=== PATIENT | male | born 1970 | race Caucasian/White ===

== ENCOUNTER → 2017-03-15 | Outpatient (CLI) | payer OTHER ==
[~2017-03-15] MED LIST: ADVAIR 250/501 EA INH; ALBUTEROL0.09 MG/A2 IH; CATAFLAM50 MG PO; DOXYCYCLINE100 M3 PO; FLEXERIL5 MG PO; LEVOTHYROXINE; LOVASTATIN40 MG PO; PREDNICOT20 MG PO; VICODIN 5/500 505 MG PO
== END | disposition home or self-care (01) ==
LOC: RAD 07:52
DX: J44.9 Chronic obstructive pulmonary disease, unspecified (principal); J45.909 Unspecified asthma, uncomplicated; Z87.891 Personal history of nicotine dependence

== ENCOUNTER 2017-07-24 12:02 | Inpatient (IN) | payer OTHER ==
[2017-07-24] VITALS (9 sets, daily range): BP systolic 82–109; BP diastolic 50–67
[~2017-07-24] VITALS: Ht 154.9 cm; Wt 55.3 kg
--- NOTE | ~2017-07-24 | PR ---
[place], [place] PROGRESS NOTE NAME: BONG GRAHAM UNIT #: [id number] ROOM: 505 DOCTOR: ANTHONY ALFONSO,TITUS Laboy BIRTHDATE: [birth year] DOS: 07/28/2017 ADDENDUM After reviewing the labs and chart, I agree with the above plans as described. We will follow patient clinically and adjust accordingly. TITUS CRUZ MD CM:PNTRANS 1904 02 TITUS CRUZ MD 07/28/17 2004 interface
--- NOTE | ~2017-07-24 | CON ---
[place], [place] REPORT OF CONSULTATION [id number] UNIT #: [id number] ROOM: [facility] DOCTOR: XIMENA LOUISE MD BIRTHDATE: [birth year] DOS: 07/24/2017 HISTORY OF PRESENT ILLNESS: A 46-year-old Euro-[place] gentleman who was seen by his PCP, was noted to have hypertensive while he was in the office. Subsequently, he came to the Emergency Room where he was found to be hypertensive, tachycardic ____ the patient and his was in [place]. She said there was a sick people in the plane. Subsequently, he started having fever, chills, productive cough of yellowish green sputum and not able to eat anything and some diarrhea. He took ibuprofen without much improvement. Subsequently, came to the Emergency Room. He was noted to have thrombocytopenia and leukocytosis and consulted for further evaluation and management. PAST MEDICAL HISTORY: Significant for asthma, COPD, hypothyroidism, Sjogren syndrome. SURGICAL HISTORY: No previous surgical history. SOCIAL HISTORY: Drinks 4 drinks per day. Denies any drug abuse. FAMILY HISTORY: Unknown. ALLERGIES: No known allergies. MEDICATIONS: Albuterol, Advair, levothyroxine, lovastatin, meloxicam. REVIEW OF SYSTEMS CONSTITUTIONAL: Has been having fever, chills, diarrhea. HEENT: No trouble swallowing. No loss of smell. No loss of hearing. No double vision. No pain. No discharge. ENT AND RESPIRATORY: No wheeze. No sore throat. No change in voice. No hearing loss. No nose bleed. No cough. No trouble breathing through nose. No shortness of breath. No coughing up blood. No epistaxis. CARDIOVASCULAR: No chest pain. No dizziness. No irregular heartbeat. No leg edema. No pain in legs while walking. No palpitations. No shortness of breath. DERMATOLOGIC: No acne. No hives. No laceration. No mole. No rash. ENDOCRINE: No cold intolerance. No diabetes. No fatigue. No hot flashes. No polydipsia. No polyuria. No urinating frequently. No weight loss. HEMATOLOGIC AND LYMPH: No fatigue. No easy bruising. GASTROENTEROLOGIC: No change in bowel habits. No indigestion. No frequent bloating. No vomiting blood. No abdominal cramping. No nausea. No heartburn. No vomiting. No abdominal pain. No dysphagia. No diarrhea. No constipation. No blood in stool. MALE REPRODUCTIVE: No testicular pain. No difficulty with erection. No diminished sexual drive. No penile discharge. MUSCULOSKELETAL: No back pain. No muscle pain or weakness. No neck pain. No tingling/numbness. No swelling/bruising. No osteoporosis treatment. OPHTHALMOLOGIC: No double vision. No diminished vision. No loss of vision. UROLOGIC: No dysuria. No frequent nighttime urination. No pain with urination. No difficulty urinating. No blood in urine. No frequent urination. [place], [place] REPORT OF CONSULTATION NAME: BONG GRAHAM UNIT #: [id number] ROOM: [facility] DOCTOR: XIMENA LOUISE MD BIRTHDATE: [birth year] No urinary incontinence. NEUROLOGIC: No loss of sensation in specific body area. No vertigo. No burning pain in feet. No trouble with balance. No trouble with coordination. No loss of consciousness. No loss of feeling/power. No confusion. No headache. No tingling/numbness. PSYCHOLOGIC: No tinnitus. No headaches. No shortness of breath. No weight decrease. No nausea. No vomiting. No abdominal discomfort. No constipation. No diarrhea. No depression. No anxiety. PHYSICAL EXAMINATION: GENERAL: This gentleman is not feeling good, weak and tired. VITAL SIGNS: Stable. He is afebrile. Blood pressure 92/50, respirations 16, pulse 110, temperature 101.0. HEENT: Oral mucosa appears intact. The external ears are normal in appearance. Nares are patent without lesions, exudates, erythema, or inflammation. Tongue is symmetrical. Uvula is midline. NECK AND THYROID: Neck supple without palpable masses. Trachea is midline. No thyromegaly. No carotid bruit or JVD. BREASTS: Normal. Nipples unremarkable. No drainage. No lumps felt on either side. HEART: Normal S1, S2, without significant murmur, rub, or gallop. LUNGS: Clear to auscultation and percussion with good air entry bilaterally. The patient is breathing easily without the use of accessory muscles. Diaphragmatic excursions are intact. ABDOMEN: No costovertebral angle tenderness. Soft. No organomegaly or masses. Nontender. No hernias present. Liver and spleen are not palpable. LYMPHATIC: No adenopathy noted in the cervical, supraclavicular, axillary, or inguinal regions. NEUROLOGIC: Nonfocal. Oriented to person, place, and time. MENTAL STATUS: Appropriate for mood and affect. PERIPHERAL PULSES: No varicosities. Femoral and pedal pulses are palpable. EXTREMITIES: Without cyanosis, clubbing, or edema. No gross anomalies. GASTROINTESTINAL: Has been having some diarrhea and off and on abdominal pain. LABORATORY DATA: White count of 15.5, hemoglobin 14.9, hematocrit 41.6, platelet count 53,000. Peripheral smear shows toxic granulations. Sodium 135, potassium 3.4, chloride 102, bicarbonate 22, EGFR is 34. ASSESSMENT: 1. Pancytopenia, probably secondary to bone marrow suppression/sepsis. 2. Septic shock. 3. Pneumonitis. 4. Leukocytosis, reactive. 5. Anemia, probably chronic disease. PLAN: The patient has been started broad spectrum antibiotics. We will get D-dimer and fibrinogen. In addition, I expect the platelet count of ____ overall condition that his sepsis improves if the count drops further, or any abnormality in the peripheral smear, then further intervention and other workup. I had a detailed discussion with the patient about it who seemed to understand [place], [place] REPORT OF CONSULTATION NAME: BONG GRAHAM UNIT #: [id number] ROOM: [facility] DOCTOR: XIMENA LOUISE MD BIRTHDATE: [birth year] it. Ample time was given to patient to ask me questions. We will follow. Thanks for consulting and letting me participate in the care of this interesting patient. XIMENA LOUISE MD CM:CONSTR:REPORT OF CONSULTATION 38 07/25/17 0403 interface
--- NOTE | ~2017-07-24 | PR ---
[place], [place] PROGRESS NOTE [id number] UNIT #: [id number] ROOM: 505 DOCTOR: BERTHA OROZCO,DECEMBER BIRTHDATE: [birth year] DOS: SUBJECTIVE: The patient is a 46-year-old male who is being followed for an E. coli bacteremia. He also had diarrhea when he came in. He states the diarrhea has improved somewhat. Workup of his stools were negative. He had a pansensitive E. coli in the blood. Admitting urine culture was negative. His UA did not have pyuria. He has had significant abdominal pain. CT of the chest, abdomen, and pelvis were done without IV contrast. Chest CT was clear. CT of abdomen and pelvis showed some questionable mild wall thickening of the sigmoid colon with diverticulosis without diverticulitis. Ultrasound of the gallbladder was unremarkable of gallbladder, liver or pancreas. CURRENT MEDICATIONS: Include the potassium; Mucinex; Cipro, which is still IV; Anusol; DuoNebs; folic acid; vitamin D; Protonix; Flagyl; Zocor; Synthroid; Dulera; albuterol; Nicoderm; Zofran; morphine; Marion; Tylenol. LABORATORY DATA: WBCs have actually gone up a little bit to 15.9, platelets 76. BUN 10, creatinine 0.72. He already had an amylase and lipase checked that were normal yesterday on the . His hepatitis panel is negative. His HIV is negative. He is alert and oriented, states he is feeling better. He is still having some abdominal pain of right lateral and upper quadrant. No nausea or vomiting. Diarrhea has improved. No rash or itch. He does have a cough. No shortness of breath. PHYSICAL EXAMINATION: VITAL SIGNS: Temperature 99.2, pulse 101, respirations 22, BP 116/60. GENERAL: A 46-year-old male in no acute distress, nontoxic in appearance. HEAD, EYES, EARS, NOSE, AND THROAT: Normocephalic, no thrush. LUNGS: Diminished bilaterally with rhonchi. Respirations even and unlabored. HEART: Regular rhythm. No murmur appreciated. ABDOMEN: Soft. Mild distention with tenderness, right upper quadrant and right lateral. Positive bowel sounds. EXTREMITIES: No edema, deformity or cyanosis. SKIN: Warm, dry, free of rashes. ASSESSMENT: Escherichia coli septicemia, possibly due to diverticular disease. WBCs went back up again today. He has some significant tenderness on exam. PLAN: We will continue the Cipro and the Flagyl. If the white count continues to rise, he needs to have a repeat CAT scan with IV and oral contrast. Case discussed with Dr. Titus Cruz. ESTRELLA PAM STONE [place], [place] PROGRESS NOTE NAME: BONG GRAHAM UNIT #: [id number] ROOM: 505 DOCTOR: BERTHA OROZCO,DECEMBER BIRTHDATE: [birth year] TITUS CRUZ MD CM:DWAYNE 07 57 BERTHA OROZCO 07/28/172111 interface
[2017-07-24 12:47] LABS: HEMATOCRIT 41.6 % (42.0-52.0); HEMOGLOBIN 14.9 g/dl (14.0-18.0); MEAN CELL VOLUME 92.2 fl (80.0-94.0); MEAN CORPUSCULAR HGB CONC 35.8 g/dl (33.0-37.0); MEAN PLATELET VOLUME 11.9 fl (9.6-12.3); NUCLEATED RED BLOOD CELL 0.1 % (0.0-0.0); PLATELET COUNT AUTOMATED 53 10*3/uL (130-400); RED BLOOD COUNT 4.51 10*6/uL (4.50-5.90); RED CELL DISTRI WIDTH 12.9 % (0-14.5); WHITE BLOOD COUNT 15.5 10*3/uL (4.8-10.8)
[2017-07-24 13:01] LABS: ALBUMIN 2.3 gm/dl (3.1-4.5); CREATININE 2.09 mg/dL (0.70-1.30); POTASSIUM 3.4 mmol/L (3.5-5.1); TOTAL PROTEIN 6.3 gm/dL (6.4-8.2)
[2017-07-24 13:06] LABS: TOTAL CELLS COUNTED 100 #CELLS
[2017-07-24 13:07] LABS: PLATELET SUFFICIENCY LOW (NORMAL); TOXIC GRANULATION SLIGHT; VACUOLATION OF NEUTROPHILS MODERATE
--- NOTE | 2017-07-24 13:45 | NUR ---
HYPOTENSION NOTED. HARVEY PEDRO AWARE. PT PLACED IN TRENDELENBERG POSITION, WITH IV FLUIDS ON PRESSURE BAG. BP IMPROVING.
[2017-07-24 14:20] LABS: BILIRUBIN 1+ (NEGATIVE); BLOOD TRACE-INTACT (NEGATIVE); CLARITY SL CLOUDY (CLEAR); COLOR YELLOW (YELLOW); GLUCOSE NEGATIVE (NEGATIVE); KETONE TRACE (NEGATIVE); LEUKO ESTERASE NEGATIVE (NEGATIVE); NITRITE NEGATIVE (NEGATIVE)
[2017-07-24 14:33] LABS: BACTERIA 1+; MUCOUS 1+
--- NOTE | 2017-07-24 14:39 | NUR ---
ATTEMPT TO CALL THE [facility] FOR REPORT. UNABLE TO GIVE REPORT, CALL WAS TRANSFERRED OUT TO THE NURSING STATION PHONE.
--- NOTE | 2017-07-24 14:47 | NUR ---
BP REMAINS 90'S/60'S. STILL SLIGHTLY HYPOTENSIVE BUT STABLE AND PT REMAINS ASYMPTOMATIC. READY FOR TRANSPORT TO THE [facility]. REPORT GIVEN.
--- NOTE | 2017-07-24 15:00 | NUR ---
A 46, admitted to ICCU, under the services of MISSY Yoon DO with a diagnosis of RENALFAILURE. Chief complaint is FEVER, CHILLS, DIARRHEA. Patient arrived via stretcher from ER. Monitor applied. Initial assessment completed. Vital signs taken and recorded. MISSY YOON DO notified of admission to the unit. Orders received. See assessment for past medical history, medications and allergies. Patient and/or family oriented to unit. [facility] visitation policy reviewed. Clothing/patient valuable form completed. CELENA CLARK
--- NOTE | 2017-07-24 15:19 | NUR ---
DR. LOUISE NOTIFIED OF CONSULT.
[2017-07-24] MEDS ORDERED: LEVO-T25 MCG PO (15:52)
[2017-07-24] MEDS ORDERED: MOBIC15 MG PO (15:53)
[2017-07-24] MEDS ORDERED: LAMISIL250 MG PO (15:54)
--- NOTE | 2017-07-24 16:00 | NUR ---
TAKEN FOR ULTRASOUND.
[2017-07-24 17:26] LABS: IMMATURE PLATELET 13.4 % (0.0-7.2)
--- NOTE | 2017-07-24 17:46 | NUR ---
PATIENT TAKEN BACK TO RADIOLOGY FOR CAT SCAN.
--- NOTE | 2017-07-24 18:08 | NUR ---
PATIENT RETURNED FROM RADIOLOGY.
--- NOTE | 2017-07-24 20:12 | NUR ---
1930 RESTING IN BED WITH HOB ELEVATED. SIDE RAILS UP X'S 2.CALL LIGHT IN REACH. HEP LOCK INTACT JASIEL. IV FLUIDS CONT RAN. OCC MOIST NON-PRODUCTIVE COUGH NOTED. SPUTUM CONT AT BEDSIDE. AFEBRILE. NO C/O'S PAIN OR DISCOMFORT VOICED. NO DISTRESS NOTED.
--- NOTE | 2017-07-24 22:10 | NUR ---
RESTING IN BED WITH EYES CLOSED.APPEARS TO BE SLEEPING.
--- NOTE | 2017-07-24 22:20 | NUR ---
HAVING CHILLS. WARM BLANKETS APPLIED.TEMP 98. TYLENOL 2 PO GIVEN.WILL CONT TO MONITOR. STATES HE HAS BEEN DOING THIS AT HOME WELL.
--- NOTE | 2017-07-24 23:24 | NUR ---
2030 IN TO SEE PT. 2320 CHILLS RESOLVED. REMAINS AFEBRILE.
--- NOTE | 2017-07-24 23:56 | NUR ---
2348 LAB CALLED - PT HAS POSITIVE BLOOD CULTURES - GRAM NEGATIVE BACILLI IN ANEROBIC BOTTLE. DR. TOLBERT NOTIFIED. ORDERS RECEIVED. 5400 DR. KOSTAS ADKINSPED FOR CONSULT.
[2017-07-25] VITALS: BP 107/66
--- NOTE | 2017-07-25 01:01 | NUR ---
DR. KENYON DID NOT ANSWER EARLIER BEEP. BEEPED AGAIN PER REQUEST .
--- NOTE | 2017-07-25 01:13 | NUR ---
ANSWERED - ORDERS RECEIVED.
--- NOTE | 2017-07-25 01:17 | NUR ---
DR.A. VINES MADE AWARE OF ORDERS OF .
[2017-07-25 04:00] VITALS: BP 131/61
--- NOTE | 2017-07-25 04:11 | NUR ---
RESTING IN BED WITH EYES CLOSED. APPEARS TO BE SLEEPING.
--- NOTE | 2017-07-25 05:35 | NUR ---
UPON QUESTIONING, PT ADMITS TO CHRONIC DIARRHEA, ESPECIALLY WHEN "DRINKING". STATES THAT HE HAS NOT HAD ANY ALCOHOL FOR 2 WEEKS, BUT PRIOR TO THAT HE DRANK A "SIX PACK"A DAY FOR "YEARS".
--- NOTE | 2017-07-25 06:10 | NUR ---
RESTING IN BED WITHOUT C/O'S. IV FLUIDS CONT. NO DISTRESS NOTED. CONDITION GUARDED.
[2017-07-25 06:32] LABS: HEMATOCRIT 35.9 % (42.0-52.0); MEAN CELL VOLUME 93.7 fl (80.0-94.0); MEAN CORPUSCULAR HGB 33.4 pg (27.0-31.0); MEAN CORPUSCULAR HGB CONC 35.7 g/dl (33.0-37.0); PLATELET COUNT AUTOMATED 54 10*3/uL (130-400); RED BLOOD COUNT 3.83 10*6/uL (4.50-5.90); RED CELL DISTRI WIDTH 13.2 % (0-14.5); WHITE BLOOD COUNT 23.1 10*3/uL (4.8-10.8)
[2017-07-25 06:34] LABS: HEMOGLOBIN 12.8 g/dl (14.0-18.0)
[2017-07-25 06:53] LABS: ALKALINE PHOSPHATASE 188 U/L (45-117); CHLORIDE 112 mmol/L (98-107); CHOLESTEROL 129 mg/dL (<200); CREATININE 1.32 mg/dL (0.70-1.30); HDL CHOLESTEROL 9 mg/dl (40-60); LDL CHOLESTEROL 41 mg/dL (9-159); SGOT/AST 47 IU/L (3-35); SGPT/ALT 60 U/L (12-78); SODIUM 141 mmol/L (136-145); TOTAL PROTEIN 5.4 gm/dL (6.4-8.2); TRIGLYCERIDES 393 mg/dl (<150); VLDL CHOLESTEROL 79 mg/dL (6-40)
[2017-07-25 06:58] LABS: BUN 45 mg/dl (7-24)
[2017-07-25 07:00] LABS: PHOSPHOROUS 0.8 mg/dL (2.5-4.9)
[2017-07-25 07:06] LABS: BURR CELLS FEW; PLASMA CELL 1 % (0-0); PLATELET SUFFICIENCY LOW (NORMAL); TOTAL CELLS COUNTED 100 #CELLS
[2017-07-25 07:12] LABS: HEPATITIS B SURFACE AG Negative (Negative); HEPATITIS C VIRUS ANTIBODY 0.1 s/co (0.0-0.9)
--- NOTE | 2017-07-25 07:28 | NUR ---
DR MAHER NOTIFIED OF CRITICAL PHOS. RESULTS.
[2017-07-25 07:50] LABS: VITAMIN D, 25-HYDROXY < 4.2 ng/mL (30-100)
[2017-07-25 08:00] VITALS: BP 112/75
--- NOTE | 2017-07-25 08:01 | NUR ---
PT AAOX3. RESP EASY. FEW SCATTERED RHONCHI NOTED IN LUNG COREY. COUGH PRODUCTIVE OF CLEAR SPUTUM. SPEICIMAN SENT TO LAB PER ORDER. PT DENIES C/O PAIN OR SOB. NO ACUTE DISTRESS NOTED. WILL CONTINUE TO MONITOR PT.
--- NOTE | 2017-07-25 09:00 | NUR ---
Inspector Scales in to talk to patient. Patient states lives at home with . There are few steps in the home. Physician: sean [facility]acy: [facility] [place] [facility]: none Patient's level of ADLs: INDEPENDENT Patient has working utilities: all workibg DME: none Follow-up physician's appointment after d/c: will be made by hospitalist nurse director upon discharge Does patient want to access PORTAL?: no Discharge plan discussed with patient, patient lives at home, is independent in adls and ambulation, works, denies any home need. KATALINA GOLDMAN
--- NOTE | 2017-07-25 09:46 | NUR ---
PHYSICAL THERAPY PAtient with Doctors and nurses at this time. Acutely ill. Will attempt at a later time or date. Thank you for this referral. Zandra Bravo,PT
--- NOTE | 2017-07-25 10:02 | NUR ---
DR BARRERA IN TO SEE PT. UPDATED PT ON PLAN OF CARE.
--- NOTE | 2017-07-25 10:37 | NUR ---
STOOL SPECIMANS SENT PER ORDER.
--- NOTE | 2017-07-25 11:46 | NUR ---
DR GREGORIO CALLED IN REGARDING PT. UPDATED HIM ON PT'S LABS. NEW ORDERS RECEIVED.
[2017-07-25 12:00] VITALS: BP 99/78
--- NOTE | 2017-07-25 14:22 | NUR ---
PT REPORT GIVEN TO NURSE,LAMONT VALLADARES.
--- NOTE | 2017-07-25 14:41 | NUR ---
MEDICATED PT PER PRN ORDER WITH TYLENOL FOR PT'S CHILLING AND C/O MUSCLE ACHES.
[2017-07-25 16:00] VITALS: BP 128/73
[2017-07-25 20:00] VITALS: BP 116/75
[2017-07-26] VITALS: BP 122/72
[2017-07-26 06:11] LABS: HEMATOCRIT 41.1 % (42.0-52.0); HEMOGLOBIN 14.2 g/dl (14.0-18.0); MEAN CELL VOLUME 96.7 fl (80.0-94.0); MEAN CORPUSCULAR HGB 33.4 pg (27.0-31.0); MEAN CORPUSCULAR HGB CONC 34.5 g/dl (33.0-37.0); MEAN PLATELET VOLUME 13.6 fl (9.6-12.3); PLATELET COUNT AUTOMATED 69 10*3/uL (130-400); RED BLOOD COUNT 4.25 10*6/uL (4.50-5.90); WHITE BLOOD COUNT 15.2 10*3/uL (4.8-10.8)
[2017-07-26 06:26] LABS: ALBUMIN 2.2 gm/dl (3.1-4.5); ALKALINE PHOSPHATASE 192 U/L (45-117); CHLORIDE 114 mmol/L (98-107); CREATININE 0.88 mg/dL (0.70-1.30); PHOSPHOROUS 1.7 mg/dL (2.5-4.9); POTASSIUM 3.8 mmol/L (3.5-5.1); SGOT/AST 29 IU/L (3-35); SGPT/ALT 46 U/L (12-78); SODIUM 142 mmol/L (136-145); TOTAL PROTEIN 6.2 gm/dL (6.4-8.2)
[2017-07-26 06:27] LABS: BUN 15 mg/dl (7-24)
[2017-07-26 06:36] LABS: BURR CELLS MODERATE; PLATELET SUFFICIENCY LOW (NORMAL); TOTAL CELLS COUNTED 100 #CELLS
[2017-07-26 08:00] VITALS: BP 151/84
--- NOTE | 2017-07-26 08:04 | NUR ---
NOTIFIED OF BLOOD CULTURE RESULTS
[2017-07-26 12:00] VITALS: BP 110/59
[2017-07-26 16:00] VITALS: BP 105/58
--- NOTE | 2017-07-26 19:40 | NUR ---
PT. AWAKE, ALERT AND ORIENTED X 3, IN BED AT THIS TIME. PT. DENIES CP, SOB. CALL LIGHT WITHIN REACH, BED IN LOWEST POSITION, WHEELS LOCKED. SEE SHIFT ASSESSMENT.
[2017-07-26 20:00] VITALS: BP 112/67
[2017-07-27] VITALS: BP 124/74
[2017-07-27 06:50] LABS: BASO % 0.2 % (0.0-1.0); EOS # 0.1 10*3/uL (0.0-0.4); EOS % 0.4 % (1.0-4.0); LYMPH # 1.2 10*3/uL (1.3-4.4); LYMPH % 9.7 % (27.0-41.0); MEAN CELL VOLUME 94.4 fl (80.0-94.0); MEAN CORPUSCULAR HGB 33.4 pg (27.0-31.0); MEAN CORPUSCULAR HGB CONC 35.4 g/dl (33.0-37.0); MEAN PLATELET VOLUME 13.8 fl (9.6-12.3); MONO # 0.1 10*3/uL (0.1-1.0); NEUT % 87.9 % (47.0-73.0); PLATELET COUNT AUTOMATED 72 10*3/uL (130-400); RED BLOOD COUNT 3.59 10*6/uL (4.50-5.90); RED CELL DISTRI WIDTH 13.5 % (0-14.5); WHITE BLOOD COUNT 12.5 10*3/uL (4.8-10.8)
[2017-07-27 06:51] LABS: HEMATOCRIT 33.9 % (42.0-52.0)
[2017-07-27 07:04] LABS: LIPASE 208 U/L (73-393)
[2017-07-27 07:11] LABS: BUN 11 mg/dl (7-24); CHLORIDE 108 mmol/L (98-107); CREATININE 0.84 mg/dL (0.70-1.30); PHOSPHOROUS 1.9 mg/dL (2.5-4.9); POTASSIUM 3.3 mmol/L (3.5-5.1); SODIUM 139 mmol/L (136-145)
[2017-07-27 08:00] VITALS: BP 119/64
--- NOTE | 2017-07-27 09:33 | NUR ---
PHYSICAL THERAPY Physical Therapy Evaluation completed this date. See eval document for further details. Will begin PT intervention to address the impairments of muscle weakness, decreased functional mobility I, and difficulty ambulating. Recommend d/[place] [id number] based on chart review and PT eval. Page Ortiz, PT
[2017-07-27 12:00] VITALS: BP 101/60
[2017-07-27 16:00] VITALS: BP 128/64
--- NOTE | 2017-07-27 19:50 | NUR ---
PT. AWAKE, ALERT AND ORIENTED X 3. PT. IN BED AT THIS TIME C/O CHILLS. CHECKED TEMP - 98.1. PT. CURRENTLY DENIES SOB, CP, OR PAIN AT THIS TIME. CALL LIGHT WITHIN REACH, BED IN LOWEST POSITION, WHEELS LOCKED. SEE SHIFT ASSESSMENT.
[2017-07-27 20:00] VITALS: BP 141/84
[2017-07-28] VITALS: BP 134/71
[2017-07-28 06:09] LABS: HIV 1+2 AB + HIV1 P24 AG Non Reactive (Non Reactive)
[2017-07-28 06:29] LABS: BASO % 0.1 % (0.0-1.0); EOS % 0.3 % (1.0-4.0); HEMATOCRIT 31.1 % (42.0-52.0); HEMOGLOBIN 11.1 g/dl (14.0-18.0); LYMPH # 1.9 10*3/uL (1.3-4.4); LYMPH % 11.7 % (27.0-41.0); MEAN CELL VOLUME 94.5 fl (80.0-94.0); MEAN CORPUSCULAR HGB 33.7 pg (27.0-31.0); MEAN CORPUSCULAR HGB CONC 35.7 g/dl (33.0-37.0); MEAN PLATELET VOLUME 13.3 fl (9.6-12.3); MONO # 0.9 10*3/uL (0.1-1.0); MONO % 5.5 % (3.0-9.0); NEUT % 81.5 % (47.0-73.0); PLATELET COUNT AUTOMATED 76 10*3/uL (130-400); RED BLOOD COUNT 3.29 10*6/uL (4.50-5.90); RED CELL DISTRI WIDTH 13.5 % (0-14.5); WHITE BLOOD COUNT 15.9 10*3/uL (4.8-10.8)
[2017-07-28 06:41] LABS: BUN 10 mg/dl (7-24); CHLORIDE 107 mmol/L (98-107); CREATININE 0.72 mg/dL (0.70-1.30); PHOSPHOROUS 2.1 mg/dL (2.5-4.9); POTASSIUM 3.2 mmol/L (3.5-5.1); SODIUM 139 mmol/L (136-145)
[2017-07-28 08:00] VITALS: BP 100/40
--- NOTE | 2017-07-28 08:00 | NUR ---
PT AWAKE. ASSESSMENT COMPLETE. NO PT COMPLAINTS AT THIS TIME.
[2017-07-28 12:00] VITALS: BP 134/75
--- NOTE | 2017-07-28 14:57 | NUR ---
PER DR CARNEY I CALLED DR HUBER TO DISCUSS DISCHARGE PLAN. WAITING FOR CALL BACK
--- NOTE | 2017-07-28 15:01 | NUR ---
SPOKE TO DR HUBER AND SHE STATED SHE WILL CALL ESTRELLA STONE AND HAVE HER CALL ME.
--- NOTE | 2017-07-28 15:03 | NUR ---
DR HUBER CALLED AND STATED THAT ESTRELLA STONE IS COMING LATER THIS EVENING TO SEE THE PT.
[2017-07-28 16:00] VITALS: BP 116/60
--- NOTE | 2017-07-28 18:59 | NUR ---
ESTRELLA KUO WITH ID IN TO SEE PT.
--- NOTE | 2017-07-28 19:30 | NUR ---
PT. AWAKE, ALERT, AND ORIENTED X 3 AT THIS TIME. PT. LUNGS WITH SCATTERED RHONCHI T/O, ON RA DENIES SOB, SPO2 >95%. HRR, PPP, NO EDEMA, DENIES CP. BS NORMO X 4 QUADS, DENIES NVD. PT. IS AMBULATORY, SKIN WDI. CALL LIGHT WITHIN REACH, BED IN LOWEST POSITION, WHEELS LOCKED.
[2017-07-28 20:00] VITALS: BP 159/86
[2017-07-29] VITALS: BP 149/67
[2017-07-29 06:25] LABS: BASO % 0.2 % (0.0-1.0); EOS % 0.4 % (1.0-4.0); HEMATOCRIT 29.4 % (42.0-52.0); HEMOGLOBIN 10.4 g/dl (14.0-18.0); LYMPH # 1.4 10*3/uL (1.3-4.4); LYMPH % 13.4 % (27.0-41.0); MEAN CELL VOLUME 95.1 fl (80.0-94.0); MEAN CORPUSCULAR HGB 33.7 pg (27.0-31.0); MEAN CORPUSCULAR HGB CONC 35.4 g/dl (33.0-37.0); MEAN PLATELET VOLUME 13.2 fl (9.6-12.3); MONO # 0.8 10*3/uL (0.1-1.0); MONO % 7.3 % (3.0-9.0); NEUT # 7.9 10*3/uL (2.3-7.9); NEUT % 77.5 % (47.0-73.0); PLATELET COUNT AUTOMATED 92 10*3/uL (130-400); RED BLOOD COUNT 3.09 10*6/uL (4.50-5.90); RED CELL DISTRI WIDTH 13.6 % (0-14.5); WHITE BLOOD COUNT 10.2 10*3/uL (4.8-10.8)
[2017-07-29 06:55] LABS: BUN 8 mg/dl (7-24); CHLORIDE 110 mmol/L (98-107); CREATININE 0.62 mg/dL (0.70-1.30); PHOSPHOROUS 2.4 mg/dL (2.5-4.9); POTASSIUM 3.3 mmol/L (3.5-5.1); SODIUM 140 mmol/L (136-145)
[2017-07-29 08:00] VITALS: BP 119/70
[2017-07-29 12:00] VITALS: BP 155/78
--- NOTE | 2017-07-29 14:50 | NUR ---
CALLED ID TO SEE ABOUT PTS POSSIBLE DISCHARGE. WAITING ANALYST PROGRAMMER BACK
[2017-07-29] MEDS ORDERED: MUCINEX ER600 MG PO (15:17)
[2017-07-29] MEDS ORDERED: CIPRO500 MG PO (15:17)
[2017-07-29] MEDS ORDERED: FLAGYL500 MG PO (15:17)
[2017-07-29] MEDS ORDERED: VITAMIN D50000 UNIT PO (15:17)
[2017-07-29] MEDS ORDERED: NATURE'S BLEND F1 MG PO (15:17)
--- NOTE | 2017-07-29 16:13 | NUR ---
Discharge instructions reviewed with patient/family. Patient receptive and verbalizes understanding. Follow-up care arranged. Written instructions given to patient/family. MINDY URIAS
== END 2017-07-29 16:13 | disposition home or self-care (01) | DRG 871 ==
LOC: ED 12:02 → EDHOLD 14:16 → ICCU 14:16 → 5E 07-25 15:52
PROVIDERS: Internal Medicine Hematology & Oncology; Internal Medicine Infectious Disease; Nurse Practitioner Family; Student in an Organized Health Care Education/Training Program; ADMIT Internal Medicine
DX: A41.51 Sepsis due to Escherichia coli [E. coli] (principal); R65.21 Severe sepsis with septic shock; N17.0 Acute kidney failure with tubular necrosis; E43 Unspecified severe protein-calorie malnutrition; D61.818 Other pancytopenia; E87.2 Acidosis; J18.9 Pneumonia, unspecified organism; E83.39 Other disorders of phosphorus metabolism; M35.00 Sjogren syndrome, unspecified; E87.1 Hypo-osmolality and hyponatremia; J44.0 Chronic obstructive pulmonary disease with (acute) lower respiratory infection; F10.20 Alcohol dependence, uncomplicated; E87.6 Hypokalemia; K52.9 Noninfective gastroenteritis and colitis, unspecified; R73.9 Hyperglycemia, unspecified; R74.0 Nonspecific elevation of levels of transaminase and lactic acid dehydrogenase [LDH]; E03.9 Hypothyroidism, unspecified; Z78.9 Other specified health status; Z71.6 Tobacco abuse counseling; Z72.0 Tobacco use; Z79.899 Other long term (current) drug therapy; Z68.23 Body mass index [BMI] 23.0-23.9, adult

== ENCOUNTER → 2019-07-21 | Outpatient (CLI) | payer OTHER ==
[~2019-07-21] MED LIST changes: +CIPRO500 MG PO; +FLAGYL500 MG PO; +LAMISIL250 MG PO; +LEVO-T25 MCG PO; +MOBIC15 MG PO; +MUCINEX ER600 MG PO; +NATURE'S BLEND F1 MG PO; +VITAMIN D50000 UNIT PO
[2019-07-21 08:36] LABS: ALBUMIN 3.7 gm/dl (3.1-4.5); ALKALINE PHOSPHATASE 69 U/L (45-117); BUN 12 mg/dl (7-24); CHLORIDE 107 mmol/L (98-107); CHOLESTEROL 179 mg/dL (<200); CREATININE 0.84 mg/dL (0.70-1.30); HDL CHOLESTEROL 77 mg/dl (40-60); LDL CHOLESTEROL 81 mg/dL (9-159); POTASSIUM 3.7 mmol/L (3.5-5.1); SGOT/AST 25 IU/L (3-35); SGPT/ALT 27 U/L (12-78); SODIUM 141 mmol/L (136-145); TOTAL PROTEIN 7.1 gm/dL (6.4-8.2); TRIGLYCERIDES 107 mg/dl (<150); VLDL CHOLESTEROL 21 mg/dL (6-40)
== END | disposition home or self-care (01) ==
LOC: LAB 07:51
PROVIDERS: Nurse Practitioner Primary Care
DX: H46.9 Unspecified optic neuritis (principal); E03.9 Hypothyroidism, unspecified; E78.49 Other hyperlipidemia

== ENCOUNTER → 2020-06-17 | Outpatient (CLI) | payer OTHER ==
[~2020-06-17] MED LIST changes: +ASPIRIN CHEWABL81 MG PO; +DOK100 MG PO; +PANTOPRAZOLE SO20 MG PO
[2020-06-17 09:14] LABS: ALBUMIN 3.7 gm/dl (3.1-4.5); ALKALINE PHOSPHATASE 71 U/L (45-117); BUN 14 mg/dl (7-24); CHLORIDE 107 mmol/L (98-107); CHOLESTEROL 165 mg/dL (<200); CREATININE 0.89 mg/dL (0.70-1.30); HDL CHOLESTEROL 75 mg/dl (40-60); LDL CHOLESTEROL 67 mg/dL (9-159); POTASSIUM 4.6 mmol/L (3.5-5.1); SGOT/AST 30 IU/L (3-35); SGPT/ALT 39 U/L (12-78); SODIUM 140 mmol/L (136-145); TOTAL PROTEIN 7.2 gm/dL (6.4-8.2); TRIGLYCERIDES 114 mg/dl (<150); VLDL CHOLESTEROL 23 mg/dL (6-40)
== END | disposition home or self-care (01) ==
LOC: LAB 08:08
PROVIDERS: ATTEND Family Medicine
DX: E03.4 Atrophy of thyroid (acquired) (principal); Z00.00 Encounter for general adult medical examination without abnormal findings

== ENCOUNTER → 2021-10-28 | Outpatient (CLI) | payer OTHER ==
[2021-10-28 11:50] LABS: BASO % 0.4 % (0.0-1.0); EOS # 0.1 10*3/uL (0.0-0.4); EOS % 1.1 % (1.0-4.0); HEMATOCRIT 44.6 % (42.0-52.0); LYMPH # 2.4 10*3/uL (1.3-4.4); LYMPH % 25.3 % (27.0-41.0); MEAN CELL VOLUME 95.5 fl (80.0-94.0); MEAN CORPUSCULAR HGB CONC 34.5 g/dl (33.0-37.0); MEAN PLATELET VOLUME 8.9 fl (9.6-12.3); MONO # 0.7 10*3/uL (0.1-1.0); MONO % 7.6 % (3.0-9.0); NEUT # 6.2 10*3/uL (2.3-7.9); NEUT % 65.3 % (47.0-73.0); PLATELET COUNT AUTOMATED 374 10*3/uL (130-400); RED BLOOD COUNT 4.67 10*6/uL (4.50-5.90); RED CELL DISTRI WIDTH 12.6 % (0-14.5); WHITE BLOOD COUNT 9.5 10*3/uL (4.8-10.8)
[2021-10-28 12:02] LABS: BUN 11 mg/dl (7-24); CHLORIDE 108 mmol/L (98-107); CREATININE 0.74 mg/dL (0.70-1.30); POTASSIUM 3.6 mmol/L (3.5-5.1); SODIUM 139 mmol/L (136-145)
== END | disposition home or self-care (01) ==
LOC: LAB 11:02
PROVIDERS: ATTEND Family Medicine
DX: I74.4 Embolism and thrombosis of arteries of extremities, unspecified (principal)

== ENCOUNTER → 2021-12-05 | Outpatient (CLI) | payer OTHER | END | disposition home or self-care (01) | LOC: US 07:30 | PROVIDERS: ATTEND Family Medicine | DX: I74.4 Embolism and thrombosis of arteries of extremities, unspecified (principal) ==

== ENCOUNTER → 2022-04-13 | Outpatient (CLI) | payer OTHER ==
[2022-04-13 09:48] LABS: ALKALINE PHOSPHATASE 87 U/L (45-117); BUN 14 mg/dl (7-24); CHLORIDE 107 mmol/L (98-107); CREATININE 0.83 mg/dL (0.70-1.30); POTASSIUM 3.9 mmol/L (3.5-5.1); SGOT/AST 23 IU/L (3-35); SGPT/ALT 27 U/L (12-78); SODIUM 140 mmol/L (136-145); TOTAL PROTEIN 7.1 gm/dL (6.4-8.2); TRIGLYCERIDES 65 mg/dl (<150)
[2022-04-13 10:18] LABS: CHOLESTEROL 138 mg/dL (<200); LDL CHOLESTEROL 48 mg/dL (9-159)
== END | disposition home or self-care (01) ==
LOC: LAB 08:15
PROVIDERS: ATTEND Family Medicine
DX: Z12.5 Encounter for screening for malignant neoplasm of prostate (principal); I10 Essential (primary) hypertension; E03.4 Atrophy of thyroid (acquired); Z72.89 Other problems related to lifestyle; E78.00 Pure hypercholesterolemia, unspecified

== ENCOUNTER → 2022-10-20 | Outpatient (CLI) | payer OTHER ==
[2022-10-20 07:42] LABS: BASO # 0.1 10*3/uL (0.0-0.1); BASO % 0.4 % (0.0-1.0); EOS # 0.1 10*3/uL (0.0-0.4); EOS % 0.5 % (1.0-4.0); HEMATOCRIT 44.6 % (42.0-52.0); LYMPH % 17.5 % (27.0-41.0); MEAN CELL VOLUME 95.1 fl (80.0-94.0); MEAN CORPUSCULAR HGB 32.8 pg (27.0-31.0); MEAN CORPUSCULAR HGB CONC 34.5 g/dl (33.0-37.0); MEAN PLATELET VOLUME 8.6 fl (9.6-12.3); MONO # 0.6 10*3/uL (0.1-1.0); MONO % 5.6 % (3.0-9.0); NEUT # 8.7 10*3/uL (2.3-7.9); NEUT % 75.7 % (47.0-73.0); PLATELET COUNT AUTOMATED 459 10*3/uL (130-400); RED BLOOD COUNT 4.69 10*6/uL (4.50-5.90); RED CELL DISTRI WIDTH 13.2 % (0-14.5); WHITE BLOOD COUNT 11.5 10*3/uL (4.8-10.8)
[2022-10-20 08:01] LABS: ALKALINE PHOSPHATASE 75 U/L (46-116); BUN 16 mg/dl (9-23); CHLORIDE 100 mmol/L (98-107); POTASSIUM 3.4 mmol/L (3.4-5.1); SGPT/ALT 24 U/L (10-49); TOTAL PROTEIN 7.3 gm/dL (6.0-8.0)
[2022-10-20 09:50] LABS: THYROID STIM HORMONE (HS) 3.421 uIU/ml (0.550-4.780)
== END | disposition home or self-care (01) ==
LOC: LAB 10-19 11:38
PROVIDERS: ATTEND Podiatrist Foot & Ankle Surgery
DX: I73.01 Raynaud's syndrome with gangrene (principal)

== ENCOUNTER → 2023-03-15 | Outpatient (CLI) | payer OTHER | END | disposition home or self-care (01) | LOC: RESCLI 02:30 | PROVIDERS: ATTEND Internal Medicine | DX: I10 Essential (primary) hypertension (principal); E78.5 Hyperlipidemia, unspecified; G25.81 Restless legs syndrome; J45.909 Unspecified asthma, uncomplicated; E03.9 Hypothyroidism, unspecified; F41.9 Anxiety disorder, unspecified; E61.1 Iron deficiency; Z98.890 Other specified postprocedural states; F17.210 Nicotine dependence, cigarettes, uncomplicated; F10.90 Alcohol use, unspecified, uncomplicated; Z79.899 Other long term (current) drug therapy ==

== ENCOUNTER → 2023-04-05 | Outpatient (CLI) | payer OTHER ==
[2023-04-05 08:47] LABS: BASO # 0.1 10*3/uL (0.0-0.1); BASO % 0.6 % (0.0-1.0); EOS # 0.1 10*3/uL (0.0-0.4); EOS % 0.9 % (1.0-4.0); HEMATOCRIT 44.3 % (42.0-52.0); LYMPH % 20.8 % (27.0-41.0); MEAN CELL VOLUME 100.5 fl (80.0-94.0); MEAN CORPUSCULAR HGB CONC 33.9 g/dl (33.0-37.0); MEAN PLATELET VOLUME 8.4 fl (9.6-12.3); MONO # 0.8 10*3/uL (0.1-1.0); MONO % 8.6 % (3.0-9.0); NEUT # 6.5 10*3/uL (2.3-7.9); NEUT % 68.8 % (47.0-73.0); PLATELET COUNT AUTOMATED 405 10*3/uL (130-400); RED BLOOD COUNT 4.41 10*6/uL (4.50-5.90); RED CELL DISTRI WIDTH 12.9 % (0-14.5); WHITE BLOOD COUNT 9.5 10*3/uL (4.8-10.8)
[2023-04-05 08:48] LABS: BILIRUBIN Negative (Negative); BLOOD Negative (Negative); CLARITY Clear (Clear); COLOR Yellow (Yellow); GLUCOSE Negative (Negative); KETONE Negative (Negative); LEUKO ESTERASE Negative (Negative); NITRITE Negative (Negative); PH 6.5 (4.5-8.0); SPECIFIC GRAVITY <= 1.005 (1.001-1.030); UROBILINOGEN 0.2 E.U./dl (0.0-1.0)
[2023-04-05 08:59] LABS: ACT PARTIAL THROMBO TIME 32.5 SECONDS (20.0-32.1)
[2023-04-05 09:27] LABS: ALKALINE PHOSPHATASE 86 U/L (46-116); BUN 12 mg/dl (9-23); CHLORIDE 101 mmol/L (98-107); POTASSIUM 4.2 mmol/L (3.4-5.1); SGPT/ALT 35 U/L (10-49); TOTAL PROTEIN 7.4 gm/dL (6.0-8.0)
== END | disposition home or self-care (01) ==
LOC: LAB 08:21
PROVIDERS: ATTEND Orthopaedic Surgery
DX: Z01.818 Encounter for other preprocedural examination (principal); J43.9 Emphysema, unspecified; M87.851 Other osteonecrosis, right femur

== ENCOUNTER → 2023-12-03 | Outpatient (CLI) | payer OTHER ==
[2023-12-03 09:18] LABS: ALKALINE PHOSPHATASE 66 U/L (46-116); BUN 12 mg/dl (9-23); CHLORIDE 107 mmol/L (98-107); CHOLESTEROL 169 mg/dL (<200); LDL CHOLESTEROL 67 mg/dL (9-159); POTASSIUM 3.8 mmol/L (3.4-5.1); SGPT/ALT 19 U/L (5-49); TOTAL PROTEIN 6.5 gm/dL (6.0-8.0); TRIGLYCERIDES 134 mg/dl (<150)
== END | disposition home or self-care (01) ==
LOC: LAB 08:34
PROVIDERS: ATTEND Family Medicine
DX: I10 Essential (primary) hypertension (principal); E78.00 Pure hypercholesterolemia, unspecified; E03.4 Atrophy of thyroid (acquired)

== ENCOUNTER → 2024-03-27 | Outpatient (CLI) | payer OTHER ==
[~2024-03-27] MED LIST changes: +LOSARTAN POTASS25 M1 PO; +ROPINIROLE HYD0.5 MG PO; +TOPROL XL25 MG PO
== END | disposition home or self-care (01) ==
LOC: RESCLI 02:32
PROVIDERS: ATTEND Internal Medicine
DX: I10 Essential (primary) hypertension (principal); E03.9 Hypothyroidism, unspecified; M25.552 Pain in left hip; F41.9 Anxiety disorder, unspecified; J44.9 Chronic obstructive pulmonary disease, unspecified; G25.81 Restless legs syndrome; D64.9 Anemia, unspecified; Z71.6 Tobacco abuse counseling; Z79.899 Other long term (current) drug therapy; Z88.8 Allergy status to other drugs, medicaments and biological substances; Z98.890 Other specified postprocedural states

== ENCOUNTER → 2024-04-02 | Outpatient (CLI) | payer OTHER ==
[~2024-04-02] MED LIST changes: +Regadenoson 0.4 MG/5 ML SYR IV ONE
== END | disposition home or self-care (01) ==
LOC: CARD 00:40
PROVIDERS: ATTEND Internal Medicine Cardiovascular Disease
DX: R94.31 Abnormal electrocardiogram [ECG] [EKG] (principal)

== ENCOUNTER → 2024-04-17 | Outpatient (CLI) | payer OTHER ==
[~2024-04-17] MED LIST changes: -Regadenoson 0.4 MG/5 ML SYR IV ONE
== END | disposition home or self-care (01) ==
LOC: CT 07:47
PROVIDERS: ATTEND Family Medicine
DX: R91.8 Other nonspecific abnormal finding of lung field (principal); J84.10 Pulmonary fibrosis, unspecified

== ENCOUNTER 2025-01-20 12:06 | Emergency (ER) | payer OTHER ==
[~2025-01-20] VITALS: Ht 154.9 cm; Wt 50.3 kg
[2025-01-20] MEDS ORDERED: Albuterol Sulf/Ipratropium 3 ML VIAL NEB ONE (13:05)
[2025-01-20 13:20] LABS: HEMATOCRIT 33.6 % (42.0-52.0); MEAN CELL VOLUME 79.2 fl (80.0-94.0); MEAN CORPUSCULAR HGB 23.6 pg (27.0-31.0); MEAN CORPUSCULAR HGB CONC 29.8 g/dl (33.0-37.0); MEAN PLATELET VOLUME 8.8 fl (9.6-12.3); NUCLEATED RED BLOOD CELL 0.2 % (0.0-0.0); PLATELET COUNT AUTOMATED 485 10*3/uL (130-400); RED BLOOD COUNT 4.24 10*6/uL (4.50-5.90); RED CELL DISTRI WIDTH 16.6 % (0-14.5)
[2025-01-20 13:37] LABS: BUN 14 mg/dl (9-23); CHLORIDE 105 mmol/L (98-107); POTASSIUM 3.9 mmol/L (3.4-5.1)
[2025-01-20 13:38] LABS: MANUAL DIFF REFLEX YES
[2025-01-20 13:47] LABS: TOTAL CELLS COUNTED 100 #CELLS
[2025-01-20 13:48] LABS: POLYCHROMASIA SLIGHT
[2025-01-20 13:49] LABS: PLATELET SUFFICIENCY HIGH (NORMAL)
[2025-01-20] MEDS ORDERED: PREDNISONE50 MG PO (13:58)
[2025-01-20] MEDS ORDERED: AVPAK AZITHROM250 M1 PO (13:58)
== END 2025-01-20 14:06 | disposition home or self-care (01) ==
LOC: ED 12:06
PROVIDERS: Physician Assistant Medical
DX: J44.1 Chronic obstructive pulmonary disease with (acute) exacerbation (principal); E78.00 Pure hypercholesterolemia, unspecified; J45.909 Unspecified asthma, uncomplicated; F17.200 Nicotine dependence, unspecified, uncomplicated; Z79.899 Other long term (current) drug therapy